=== PATIENT | male | born 1975 | race Caucasian/White ===

== ENCOUNTER 2021-09-10 19:11 | Emergency (ER) | payer SELFPAY ==
[2021-09-10 19:27] VITALS: BP 133/86; PULSE 94; TEMP 98.6; BMI 38.9
== END 2021-09-10 20:58 | disposition home or self-care (01) ==
LOC: JERFT 19:11
DX: H65.01 Acute serous otitis media, right ear (principal)
CPT/HCPCS: 99281-25

== ENCOUNTER 2021-12-26 19:25 | Emergency (ER) | payer SELFPAY ==
[2021-12-26 19:36] VITALS: BP 135/81; PULSE 80; TEMP 98.5; BMI 41.6
[2021-12-26 22:11] LABS: BASO % 0.6 % (0-2.0); HEMATOCRIT 42.3 % (35.4-49); HEMOGLOBIN 14.4 GM/dL (11.7-16.9); LYMPH % 22.5 % (8-40); MCH 30.7 pg (25.7-33.7); MCHC 34.2 g/dl (32.0-35.9); MEAN CELL VOLUME 89.9 fl (80-96); MEAN PLT VOLUME 6.5 fl (7.5-11.1); MONO % 9.9 % (3.8-10.2); PLATELET COUNT 285 10^3/uL (134-434); RDW 13.2 % (11.9-15.9); WHITE BLOOD COUNT 8.3 K/mm3 (4.0-10.0)
[2021-12-26 22:20] LABS: PROTHROMBIN TIME (PATIENT) 11.5 SEC (9.7-13.0)
[2021-12-26 22:22] LABS: ACTIVATED PTT 29.1 SECONDS (25.2-36.5)
[2021-12-26 22:36] LABS: CALCIUM 8.9 mg/dL (8.5-10.1)
[2021-12-26 22:37] LABS: ALBUMIN 3.7 g/dl (3.4-5.0); BLOOD UREA NITROGEN 14.7 mg/dL (7-18)
[2021-12-26 22:40] LABS: CREATININE 0.7 mg/dL (0.55-1.3)
[2021-12-26 22:42] LABS: BILIRUBIN,TOTAL 0.4 mg/dL (0.2-1); TOT PROT 7.4 g/dl (6.4-8.2)
== END 2021-12-27 01:54 | disposition home or self-care (01) ==
LOC: JER 19:25
DX: R07.9 Chest pain, unspecified (principal)
CPT/HCPCS: 36415; 71045-TC-FY; 80053; 84484; 85025; 85610; 85730; 93005; 93010; 99285-25

== ENCOUNTER 2022-06-15 17:25 | Emergency (ER) | payer OTHER ==
[2022-06-15 18:04] VITALS: BP 138/89; PULSE 89; RESP 18; TEMP 98.8; BMI 31.8
[2022-06-15] MEDS ORDERED: FLUORESCEIN NA 1 EA STRIP OU ONE (19:15)
[2022-06-15] MEDS ORDERED: TETRACAINE 0.5% OPHTH SOLN 2 ML BOTTLE OU ONE (19:15)
[2022-06-15] MEDS ORDERED: FLUORESCEIN NA 1 EA STRIP ONE (19:18)
== END 2022-06-15 20:51 | disposition home or self-care (01) ==
LOC: FER 17:25
DX: T26.92XA Corrosion of left eye and adnexa, part unspecified, initial encounter (principal)
CPT/HCPCS: 99283-25

== ENCOUNTER 2022-08-20 20:51 | Emergency (ER) | payer OTHER ==
[2022-08-20 20:57] VITALS: RESP 18; BMI 35.4
[2022-08-20 23:45] VITALS: BP 115/64; PULSE 76; TEMP 98.4
[2022-08-20 23:54] LABS: EPI CELLS 0 /uL (0-25.1); HYALINE CASTS 0 /uL (0-3.1); PH,URINE 5.5 (5.0-8.0); URINE APPEARANCE CLEAR; URINE BACTERIA 0 /uL (0-1359); URINE BILIRUBIN NEGATIVE (NEGATIVE); URINE COLOR YELLOW; URINE GLUCOSE (UA) NEGATIVE (NEGATIVE); URINE KETONE NEGATIVE (NEGATIVE); URINE LEUK ESTERASE NEGATIVE (NEGATIVE); URINE NITRITE NEGATIVE (NEGATIVE); URINE PROTEIN NEGATIVE (NEGATIVE); URINE RBC 27 /uL (0-23.9); URINE UROBILINOGEN 0.2 mg/dL (0.2-1.0); URINE WBC 3 /uL (0-25.8)
[2022-08-21] MEDS ORDERED: AMOX TR/POT CLAV 875MG/125MG TABLETS (FP) PO ONE (01:09)
[2022-08-21] MEDS ORDERED: AMOX TR/POT CLAV 875MG/125MG TABLETS (FP) ONE (01:16)
== END 2022-08-21 01:23 | disposition home or self-care (01) ==
LOC: JER 20:51
DX: K57.92 Diverticulitis of intestine, part unspecified, without perforation or abscess without bleeding (principal)
CPT/HCPCS: 74176-TC; 81003; 87086; 99284-25

== ENCOUNTER 2023-06-22 18:28 | Emergency (ER) | payer OTHER ==
[2023-06-22 18:38] VITALS: BP 115/53; PULSE 95; RESP 18; TEMP 98.2; BMI 43.3
[2023-06-22] MEDS ORDERED: TETRACAINE 0.5% HCL 0.6ML DROPPER.BOTTLE OU ONE (22:36)
[2023-06-22] MEDS ORDERED: FLUORESCEIN NA 1 EA STRIP OU ONE (22:36)
[2023-06-22] MEDS ORDERED: TETRACAINE 0.5% OPHTH SOLN 2 ML BOTTLE ONE (22:44)
[2023-06-22] MEDS ORDERED: FLUORESCEIN NA 1 EA STRIP ONE (22:44)
[2023-06-22] MEDS ORDERED: ERYTHROMYCIN 0.5% OPHTHALMIC OINTMENT 3.5 GM TUBE OU STA (23:05)
[2023-06-22] MEDS ORDERED: ERYTHROMYCIN 0.5% OPHTHALMIC OINTMENT 3.5 GM TUBE ONE (23:07)
== END 2023-06-22 23:30 | disposition home or self-care (01) ==
LOC: JERFT 18:28
DX: H57.12 Ocular pain, left eye (principal); H57.89 Other specified disorders of eye and adnexa; S05.02XA Injury of conjunctiva and corneal abrasion without foreign body, left eye, initial encounter; X58.XXXA Exposure to other specified factors, initial encounter
CPT/HCPCS: 99283-25

== ENCOUNTER 2023-08-03 14:27 | Emergency (ER) | payer OTHER ==
[2023-08-03 14:31] VITALS: BP 107/63; PULSE 81; RESP 18; TEMP 98; BMI 32.9
[2023-08-03] MEDS ORDERED: IBUPROFEN 400 MG TABLET (FP) PO ONE ×2 (15:37→15:43)
[2023-08-03] MEDS ORDERED: AMOX TR/POT CLAV 875MG/125MG TABLETS (FP) PO ONE (15:37)
[2023-08-03] MEDS ORDERED: AMOX TR/POT CLAV 875MG/125MG TABLETS (FP) ONE (15:43)
== END 2023-08-03 16:15 | disposition home or self-care (01) ==
LOC: JERFT 14:27
DX: H66.004 Acute suppurative otitis media without spontaneous rupture of ear drum, recurrent, right ear (principal); H92.01 Otalgia, right ear
CPT/HCPCS: 99283-25

== ENCOUNTER 2023-08-11 19:33 | Emergency (ER) | payer OTHER ==
[2023-08-11 21:13] VITALS: BP 117/71; PULSE 89; RESP 18; TEMP 98.2; BMI 37.8
== END 2023-08-11 22:34 | disposition home or self-care (01) ==
LOC: JERFT 19:33
DX: H92.01 Otalgia, right ear (principal); H60.91 Unspecified otitis externa, right ear; T16.1XXA Foreign body in right ear, initial encounter
CPT/HCPCS: 99283-25

== ENCOUNTER 2024-12-01 17:26 | Emergency (ER) | payer OTHER ==
[2024-12-01 17:35] VITALS: BP 115/76; PULSE 80; RESP 18; TEMP 98.2; BMI 32.5
[2024-12-01] MEDS ORDERED: ACETAMINOPHEN INJECTION 100 ML ONE (18:01)
[2024-12-01] MEDS: SODIUM CHLORIDE 0.9% 1000 ML INFUS.BAG IV ONE (18:12)
[2024-12-01] MEDS: ACETAMINOPHEN 1000 MG/100 ML BAG IVPB ONE (18:13)
[2024-12-01 18:31] LABS: ABSOLUTE IMMATURE GRANULOCYTES 0.01 x10^3/uL (0.0-0.031); BASOPHILS # 0.02 x10^3/uL (0.01-0.08); EOSINOPHIL % 0.8 % (0.8-7.0); EOSINOPHILS # 0.07 x10^3/uL (0.04-0.54); HEMATOCRIT 42.5 % (40.1-51.0); HEMOGLOBIN 14.4 g/dL (13.7-17.5); MCHC 33.9 g/dl (32.3-36.5); MEAN CELL VOLUME 91.6 fl (79.0-92.2); MEAN PLT VOLUME 8.3 fl (9.4-12.4); MONOCYTE # 1.01 x10^3/uL (0.30-0.82); PLATELET COUNT 275 x10^3/uL (163-337); RDW 13.1 % (12.1-15.9)
[2024-12-01 18:41] LABS: BILIRUBIN,TOTAL 0.5 mg/dl (0.2-1); CALCIUM 8.6 mg/dl (8.5-10.1); CREATININE 0.8 mg/dl (0.6-1.3); MAGNESIUM 2.3 mg/dL (1.8-2.4); POTASSIUM 3.9 mmol/L (3.5-5.1); TOT PROT 7.1 g/dl (6.4-8.2)
[2024-12-01 20:46] LABS: HIV INTERPRETATION NEGATIVE (NEGATIVE)
[2024-12-01 20:47] LABS: HCV DIAGNOSTIC IN-HOUSE W/RFLX NON-REACTIVE (NONREACTIVE)
[2024-12-01] MEDS ORDERED: PIPERACILLIN/TAZOBACTAM 4.5 GM VIAL IVPB ONE (20:54)
[2024-12-01] MEDS: PIPERACILLIN/TAZOB 4.5 GM 4.5 GM in DEXTROSE 5%-WATER 100 ML IVPB ONE (21:12)
== END 2024-12-01 22:28 | disposition home or self-care (01) ==
LOC: FER 17:26
PROC: 3E03329 Introduction of Other Anti-infective into Peripheral Vein, Percutaneous Approach (ICD-10-PCS; principal; 2024-12-01)
PROC: 3E03329 Introduction of Other Anti-infective into Peripheral Vein, Percutaneous Approach (ICD-10-PCS; 2024-12-01)
PROC: 3E033NZ Introduction of Analgesics, Hypnotics, Sedatives into Peripheral Vein, Percutaneous Approach (ICD-10-PCS; 2024-12-01)
DX: K57.32 Diverticulitis of large intestine without perforation or abscess without bleeding (principal); R19.7 Diarrhea, unspecified; R10.32 Left lower quadrant pain
CPT/HCPCS: 36415; 74177-TC; 80053; 83690; 83735; 85025; 86803; 87389; 99285-25; J0131